=== PATIENT | female | born 1985 | race Caucasian/White ===

== ENCOUNTER 2019-09-03 14:09 | Emergency (ER) | payer MEDICARE, OTHER ==
[~2019-09-03] VITALS: Ht 160 cm; Wt 76.1 kg
[2019-09-03 14:22] VITALS: BP 134/86
--- NOTE | 2019-09-03 14:30 | NUR ---
PT HERE WITH C/O DENTAL PAIN, STATES "IT HURTS SO BAD HOW AM I SUPPOSED TO WORK?"
[2019-09-03] MEDS ORDERED: CLINDAMYCIN 300 MG CAPSULE ONE (14:51)
[2019-09-03] MEDS ORDERED: KETOROLAC 30 MG/1 ML ONE (14:51)
[2019-09-03] MEDS ORDERED: OXYcodone/APAP 5/325MG TABLET ONE (14:57)
--- NOTE | 2019-09-03 14:58 | NUR ---
PT MEDICATED PER ORDERS.
[2019-09-03] MEDS ORDERED: KETOROLAC 30 MG/1 ML IM ONE (15:00)
[2019-09-03] MEDS ORDERED: OXYcodone/APAP 5/325MG TABLET PO ONE (15:00)
[2019-09-03] MEDS ORDERED: CLINDAMYCIN 300 MG CAPSULE PO ONE (15:00)
== END 2019-09-03 15:13 | disposition home or self-care (01) ==
LOC: ED 15:00
DX: K08.89 Other specified disorders of teeth and supporting structures (principal)
CPT/HCPCS: 96372; 99283; J1885

== ENCOUNTER 2019-09-05 10:48 | Emergency (ER) | payer MEDICARE ==
[~2019-09-05] VITALS: Ht 160 cm; Wt 75.4 kg
[2019-09-05 10:54] VITALS: BP 101/61
[2019-09-05] MEDS ORDERED: BUPIVACAINE/PF 0.5% ONE (13:41)
[2019-09-05] MEDS ORDERED: BUPIVACAINE/PF 0.5% INFIL ONE (14:00)
--- NOTE | 2019-09-05 14:53 | NUR ---
Patient/Caregiver given discharge instructions and they have confirmed that they understand the instructions. Patient ambulatory with steady gait. PT LEFT WITH ALL PERSONAL BELONGINGS.
== END 2019-09-05 14:55 | disposition home or self-care (01) ==
LOC: ED 14:37
DX: K02.9 Dental caries, unspecified (principal)
CPT/HCPCS: 64400; 99284